=== PATIENT | female | born 1980 | race Caucasian/White ===

== ENCOUNTER → 2020-08-17 11:19 | Outpatient (CLI) | payer OTHER, SELFPAY ==
[2020-08-17 20:13] LABS: Free T4, Direct Thyroxine 1.05 ng/dL (0.78-2.19); Vitamin D 25 Hydroxy (D3) 48.7 ng/mL (30.0-100.0)
[2020-08-23 07:35] LABS: Vitamin B6 14.1 ug/L (2.0-32.8)
== END ==
PROVIDERS: PCP Obstetrics & Gynecology; Visit Provider Obstetrics & Gynecology
DX: E55.9 Vitamin D deficiency, unspecified (principal); G62.0 Drug-induced polyneuropathy; T45.2X5A Adverse effect of vitamins, initial encounter; Z83.49 Family history of other endocrine, nutritional and metabolic diseases
CPT/HCPCS: 82306; 84207; 84439; 84443